=== PATIENT | female | born 1950 | race Caucasian/White ===

== ENCOUNTER → 2018-01-17 | Outpatient (CLI) | payer OTHER, MEDICARE | LOC: ULTRA 13:56 → RAD 13:56 | DX: N63.11 Unspecified lump in the right breast, upper outer quadrant (principal); N63.22 Unspecified lump in the left breast, upper inner quadrant; R92.2 Inconclusive mammogram ==

== ENCOUNTER 2018-01-29 05:24 | Outpatient (CLI) | payer OTHER, MEDICARE ==
[~2018-01-29] VITALS: Ht 170.2 cm; Wt 91.6 kg
[~2018-01-29 05:24] MED LIST: AMITRIPTYLINE H25 M2 PO; NEXIUM20 MG PO; SIMVASTATIN40 MG PO; VITAMIN D350000 UNIT PO
[2018-01-29 06:43] VITALS: BP 178/76
== END 2018-01-29 10:39 | disposition home or self-care (01) ==
LOC: MRI 05:24 → TBA 05:24 → MRI 09:21
DX: C50.212 Malignant neoplasm of upper-inner quadrant of left female breast (principal)
CPT/HCPCS: 50010; 62110; 62900; 70005

== ENCOUNTER 2018-01-30 05:23 | Day surgery (SDC) | payer OTHER, MEDICARE ==
[~2018-01-30] VITALS: Ht 170.2 cm; Wt 91.6 kg
--- NOTE | ~2018-01-30 | H ---
[facility] [place] [address] HISTORY AND PHYSICAL Name: GISEL PALACIOS Room #: 150-1 [facility] M.R.#: [id number] Admission: 01/30/18 Attend Phys: Med Roberts MD Discharge: Date of : 48 Report #: [id number] THIS REPORT FOR: //name// CC: Facundo Roberts DATE OF SERVICE: 01/30/2018 PREOPERATIVE DIAGNOSIS: Right breast cancer, multifocal with highly suspicious axillary node x 2. HISTORY OF PRESENT ILLNESS: The patient is a 67-year-old who noticed a lump in the right breast. This was in the outside aspect of the right breast. The patient has a history of fibrocystic disease. Many years ago, she had a cyst that was aspirated. No family history of breast cancer. She does have a sister with a history of a teratoma of the ovary. She also had lung cancer. The patient denies any pain. The mass is firm. No skin changes. No redness over this. No discharge. The patient had a mammogram and ultrasound performed. The patient has a main mass at 10 o'clock B position and then lateral, there is another mass and then there were two suspicious axillary nodes. A needle biopsy was performed of the main mass and it did show invasive ductal carcinoma, moderately to poorly differentiated. Her ER is 90%, CT less than 1 and HER-2 was 3+. Ki-67 is 70. The patient has had an MRI yesterday, result is pending. The patient wants to proceed with a right modified radical mastectomy. The patient does not want to have any radiation and does not want to have any reconstruction. The patient does know that some patients may still benefit from postmastectomy radiation and would have to depend on the final path. PAST MEDICAL HISTORY: The patient has elevated cholesterol and acid reflux. MEDICATIONS: Amitriptyline 25 mg daily, simvastatin 40 mg, vitamin D, and Nexium [id number]. PAST SURGICAL HISTORY: Cholecystectomy in 2006, right ankle repair in 1994, cataract surgery 2015 and 2016. ALLERGIES: She is allergic to CODEINE and NEOSPORIN. FAMILY HISTORY: Father of pneumonia. Mother had of Alzheimer's. Sister with lung cancer and a history of ovarian cancer. The patient is retired. She does not smoke. Alcohol rare. The patient does have some high blood pressure, but not on any specific medication. REVIEW OF SYSTEMS: She has irritable bowel. Occasional dizziness. The patient [address] [address] HISTORY AND PHYSICAL Name: GISEL PALACIOS Room #: 150-[address] [place] [address] M.R.#: [id number] Admission: 01/30/18 Attend Phys: Med Roberts MD Discharge: Date of : 48 Report #: [id number] denies any chest pain, numbness, weakness. No bone pain anywhere. No weight loss. PHYSICAL EXAMINATION: GENERAL: Well-nourished female in no acute distress. HEENT: Pupils react to light. Extraocular muscles are intact. Oropharynx clear. NECK: Soft and supple, no masses. The patient does have obvious breast mass at 10 o'clock B position. There are 2 palpable lymph nodes also. No skin changes. No nipple retraction, no redness or rash. Left breast is unremarkable. No supraclavicular adenopathy, no axillary adenopathy on the left side. ABDOMEN: Soft, nondistended, nontender, no mass or organomegaly. No guarding or rigidity. EXTREMITIES: No cyanosis, clubbing or edema. He moves all extremities well. Sensation is intact. IMPRESSION: The patient is a 67-year-old with left breast mass that is positive for invasive ductal carcinoma, moderate to poorly differentiated. The patient does have aggressive tumor profile with 3+ HER-2 and Ki-67 of 70%. The patient wishes to have a mastectomy. MRI will be reviewed preop. The patient understands the procedure and the risk of bleeding, infection and also was told that she probably will need to have chemotherapy. By: [id number] Med Roberts MD /nt
--- NOTE | ~2018-01-30 | O ---
[facility] [place] [address] OPERATIVE REPORT Name: GISEL PALACIOS Room #: 418-P [facility] M..#: [id number] Admission: 01/30/18 Attend Phys: Med Roberts MD Discharge: Date of : 48 Report #: [id number] THIS REPORT FOR: //name// CC: Facundo Roberts PREOPERATIVE DIAGNOSIS: Right breast invasive ductal carcinoma with multi focality and suspicious lymph nodes in the axilla. POSTOPERATIVE DIAGNOSES: Right breast invasive ductal carcinoma with multi focality and suspicious lymph nodes in the axilla. PROCEDURE: Right modified radical mastectomy. SURGEON: Med Roberts M.D. ANESTHESIA: General anesthesia. COMPLICATIONS: None. ESTIMATED BLOOD LOSS: 25 mL. DESCRIPTION OF PROCEDURE: The mass is identified at 9:30 to 10:00 position. This is a palpable mass, it is about 3 cm. There is also nodularity in the axilla. The ellipse was drawn. The skin was removed over the mass. The upper skin flap was created. This flap was performed at the superficial fascia of the breast. The flap was somewhere close to about a centimeter or slightly thinner than that. This was taken to the chest wall just a little bit below the clavicle. This was taken medially to the breast edge. Inferior skin incision was made. Cautery was used to dissect the inferior skin flap. A generous portion of the skin was removed so the main tumor can be encompassed rather easily. The breast was then taken off the chest wall. The posterior dissection was carried at the pectoralis fascia. Hemoclips were applied. There was no invasion of the chest wall grossly. The axillary space was then entered. The lateral pectoralis major muscle was then isolated and freed. The blood supply to the pectoralis minor was preserved. The axillary vein was found. The first branch was isolated, divided between clips, two were placed on the proximal side. This vein was divided. The main thoracodorsal artery and vein were then identified laterally and preserved. The nerve was intact. The long thoracic nerve was also identified and preserved. The lymph node between these two nerves was removed. There was no grossly positive node in this area. Right against the axillary vein there was no obvious lymph node, but slightly lateral and slightly inferior to the vein there was a palpable lymph node present. The axillary content was swept downward and removed with the breast. A tie was placed on the axilla for the pathologist. Skin was marked with the orientation. [address] [address] OPERATIVE REPORT Name: GISEL PALACIOS Room #: 418-P [facility]..#: [id number] Admission: 01/30/18 Attend Phys: Med Roberts MD Discharge: Date of : 48 Report #: [id number] Specimen was handed to the pathologist. Biopsy report from the outside was copied and given to the pathologist. By: [id number] 2146 Med Roberts MD /mark
--- NOTE | ~2018-01-30 | EKG ---
[address] [address] ELECTROCARDIOGRAM REPORT Name: GISEL PALACIOS Room #: 150-[address] [place] [address]..#: [id number] Admission: 01/30/18 Attend Phys: Med Roberts MD Discharge: Date of : 48 Report #: [id number] THIS REPORT FOR: //name// [facility] Test Date: 2018-01-30 Test Time: 12:27:31 Pat Name: GISEL PALACIOS Department: Room: 150 Gender: F Sales Operations Director: ROLANDO : 1950 Requested By: Med Roberts Order Number: [id number] MD: Measurements Intervals [place] Rate: 95 P: 56 LA: 170 QRS: 4 QRSD: 101 T: 46 QT: 367 QTc: 462 Interpretive Statements Sinus tachycardia Multiform ventricular premature complexes Probable anteroseptal infarct, old No previous ECG available for comparison [email or web address] By: 1227 1227 Epiphany EpiphanyMD /EPI
--- NOTE | ~2018-01-30 | PATH ---
[facility] [place] [place] [address] [place] [address] PATHOLOGY RPT PROCEDURE Name: GISEL PALACIOS Room #: DEP [facility]..#: [id number] Admission: 01/30/18 Date of : 48 Discharge: 01/31/18 Report #: [id number] Path Case #: [id number] [facility] Accession Number: [id number] . 01 Material submitted: . RIGHT MODFIED RADICAL MASTECTOMY . 01 Clinical history: . Right breast cancer . 02 Diagnosis: Breast "right modified radical mastectomy": - MULTIPLE INFILTRATING DUCTAL CARCINOMA GRADE 3, THE LARGEST MAIN MASS MEASURING 2.6 CM IN GREATEST DIMENSION. - THE SECOND MASS MEASURES 1.8 CM IN GREATEST DIMENSION AND THE THIRD MASS MEASURES 1.5 CM IN GREATEST DIMENSION. THEY ARE ALL COMPLETELY EXCISED. SEE COMMENT. - LYMPH NODES (20): THREE LYMPH NODES POSITIVE FOR METASTATIC DUCTAL CARCINOMA. - THE LARGEST FOCUS OF INVASIVE CARCINOMA MEASURES 1.0 CM. - THERE IS EXTRACAPSULAR EXTENSION MEASURING 3.0 MM IN GREATEST DIMENSION. . SYNOPTIC FOR INVASIVE CARCINOMA OF THE BREAST . Procedure ___ Total mastectomy (including nipple-sparing and skin-sparing mastectomy) . Specimen Laterality ___ Right . + Tumor Site: Invasive Carcinoma + ___ Lower outer quadrant + ___ Upper outer quadrant . Tumor Size ___ Greatest dimension of largest invasive focus >1 mm: 26 mm . Histologic Type ___ Invasive ductal carcinoma . Histologic Grade (Raine Histologic Score) . Glandular/Tubular Differentiation ___ Score 3 (<10% of tumor area forming glandular/tubular structures) . Nuclear Pleomorphism ___ Score 3 (vesicular nuclei, often with prominent nucleoli, exhibiting [facility] [address] [place] [address] PATHOLOGY RPT PROCEDURE Name: GISEL PALACIOS Room #: DEP [facility].#: [id number] Admission: 01/30/18 Date of : 48 Discharge: 01/31/18 Report #: [id number] Path Case #: [id number] marked variation in size and shape, occasionally with very large and bizarre forms) . Mitotic Rate ___ Score 2 (4-7 mitoses per mm2) . Overall Grade ___ Grade 3 (scores of 8 or 9) + Tumor Focality + ___ Multiple foci of invasive carcinoma + Number of foci: 3 + Sizes of individual foci: 2.6, 1.8 and 1.5 . Ductal Carcinoma In Situ (DCIS) ___ Not identified + Lobular Carcinoma In Situ (LCIS) + ___ No LCIS in specimen . Tumor Extension Skin ___ No involvement of skin Nipple ___ No involvement of the nipple Skeletal Muscle ___ Not involved . Margins . Invasive Carcinoma Margins ___ Uninvolved by invasive carcinoma Distance from closest margin: 10 mm Specify closest margin: Posterior . Regional Lymph Nodes ___ Involved by tumor cells . Number of Lymph Nodes with Macrometastases (>2 mm): 3 + Size of Largest Metastatic Deposit: 10 mm + Extranodal Extension: + ___ Present Number of Lymph Nodes Examined: 20 Number of [place] Nodes Examined: 0 . Treatment Effect: ___ No known presurgical therapy + Lymphovascular Invasion + ___ Present + Dermal Lymphovascular Invasion [facility] [address] [place] [address] PATHOLOGY RPT PROCEDURE Name: PHILIPGISEL ELLEN Room #: DEP [facility].#: [id number] Admission: 01/30/18 Date of : 48 Discharge: 01/31/18 Report #: [id number] Path Case #: [id number] + ___ Not identified . Pathologic Stage Classification (pTNM, AJCC 8th Edition) . Primary Tumor (Invasive Carcinoma) (pT) ___ pT2: Tumor >20 mm but less than or equal to 50 mm in greatest dimension Category (pN) ___ pN1a: Metastases in 1 to 3 axillary lymph nodes, at least 1 metastasis larger than 2.0 mm + Microcalcifications + ___ Not identified . Comment The previous biopsy was read by [facility], their case #[id number]. The invasive breast marker profile was done by [facility]. They indicated the Ki-67 to be 70 and estrogen receptors 90% intensity of stain was strong and progesterone receptor studies was less than 1% and it was negative and Her2 by FISH was 3+. This case was also discussed with Dr. Med Roberts on 02/02/2018 at 3pm. LBQ/02/02/2018 . 02 Comment: All three masses reveal a poorly differentiated infiltrating ductal carcinoma, the closest margin is posterior 1.0 cm from the third mass. (SHA/db; 02/02/2018) . 02 Electronically signed: . Nils Powers MD, Pathologist NPI- [id number] . 01 Gross description: . The specimen is received in formalin, labeled "Gisel Palacios, right modified radical mastectomy" and consists of a 1092 g modified radical mastectomy specimen with a suture at "high axilla". Present on the anterior skin ellipse is blue markings which orients superior, medial, inferior, and lateral. The breast tissue measures 19.0 cm L-M, 17.1 cm S-I, and 6.4 cm in A-P. The unremarkable anterior skin ellipse measures 20.8 x 7.9 cm and displays an everted nipple (1.4 x 1.2 cm) and areolar (6.1 x 4.8 cm). Superior is inked blue, inferior green, and posterior black. The axillary contents measures 15.0 x 7.9 x 3.0 cm. The specimen is sectioned from lateral to medial and placed back in formalin for overnight fixation. (SDY; 01/30/2018) . After additional overnight fixation 3 distinct masses are identified. The first is present in the lower outer quadrant and measures 2.6 x 2.6 x [address] [address] PATHOLOGY RPT PROCEDURE Name: GISEL PALACIOS Room #: DEP [facility]#: [id number] Admission: 01/30/18 Date of : 48 Discharge: 01/31/18 Report #: [id number] Path Case #: [id number] cm. The distance from margins are as follows: 2.0 cm inferior, 3.7 cm superior, 4.3 cm posterior, and 2.9 cm from nipple. 0.1-0.2 cm lateral from the first described mass, is the second mass (1.8 x 1.5 x 1.1 cm). The second mass extends from margins as follows: 2.0 cm inferior, 3.0 cm superior, 3.2 cm posterior, and 4.5 cm from nipple. 5.5 cm superior from the first described mass and 5.5 cm superior/medial from the second described mass is the third mass (upper outer quadrant). The third mass measures 1.5 x 1.1 x 1.0 cm and extends from the margins as follows: 1.0 cm posterior, 1.8 cm superior, 9.5 cm inferior, and 9.0 cm from nipple. The remainder of the breast parenchyma consists of yellow adipose tissue and approximately 30% dense fibrous tissue. No additional masses or lesions identified. The axillary contents reveal multiple lymph node candidates measuring between 0.3 x 0.3 cm and 4.0 x 1.5 cm. Three of the candidates are suspicious for metastasis. The specimen was collected at 2:42 PM on 01/30/18 and placed in formalin at 2:50 PM. The cold ischemic time is 8 minutes and the total formalin fixation time is greater than 6 hours but less than 72 hours. Abstract Manager sections are submitted as follows: . A1: Nipple A2-A4: First described mass A5: Margins first described mass A6-A7: Second described mass A8: Margins second described mass A9: Third described mass with relationship to posterior margin A10: Third described mass with relationship to superior margin A11: Tissue deep to nipple A12: Additional upper outer quadrant A13: Additional lower outer quadrant A14: Upper inner quadrant A15: Lower inner quadrant A16: Largest lymph node candidate, suspicious for metastasis, ocean import representative A17-A19: One lymph node candidate, serially sectioned A20-A21: One lymph node candidate, serially section (suspicion for metastasis) A22-A28: Fat replaced lymph node candidate with focus of metastasis A29: One lymph node candidate, trisected A30: One lymph node candidate, bisected A31: 2 sectioned lymph node candidates, one inked black A32: Multiple intact lymph node candidates A33: 2 bisected lymph node candidates, one inked black A34: 2 bisected lymph node candidates, one inked black A35: Intact lymph node candidates (SDY; 01/31/2018) SYU/SYU . 02 Pathologist provided ICD-10: [address] [address] PATHOLOGY RPT PROCEDURE Name: GISEL PALACIOS Room #: DEP [facility] MShahrzad.#: [id number] Admission: 01/30/18 Date of : 48 Discharge: 01/31/18 Report #: [id number] Path Case #: [id number] C50.411, C50.511, C77.3 . 02 [facility] . [id number] Specimen Comment: A courtesy copy of this report has been sent to Specimen Comment: [phone], . Specimen Comment: Report sent to / DR RICHARD Performed at: [address], [place], [place] [id number] MD Wolf Francois MD Phone: [phone] Performed at: [address] [id number] MD Jazlyn Villarreal MD Phone: [phone]
[2018-01-30 12:02] LABS: HEMATOCRIT 44.9 % (37.0-47.0); HEMOGLOBIN 15.5 gm/dL (12.0-15.0)
[2018-01-30 12:06] VITALS: BP 175/91
[2018-01-30 18:31] VITALS: BP 157/92
[2018-01-30 19:30] VITALS: BP 160/95
[2018-01-30 20:00] VITALS: BP 150/86
[2018-01-30 21:00] VITALS: BP 128/68
[2018-01-30 22:00] VITALS: BP 170/97
[2018-01-31 02:00] VITALS: BP 114/62
[2018-01-31 03:00] VITALS: BP 115/59
[2018-01-31 06:00] VITALS: BP 115/62
[2018-01-31 08:07] VITALS: BP 127/71
[2018-01-31 15:52] VITALS: BP 136/61
[2018-01-31] MEDS ORDERED: ALEVE220 MG PO (16:16)
[2018-01-31 16:27] VITALS: BP 136/61
== END 2018-01-31 17:57 | disposition home or self-care (01) ==
LOC: TBA 05:23 → OR 05:23 → TBA 05:24 → OR 08:05 → 4E 18:23 → ENTRNSPT 01-31 17:20 → OR 01-31 17:57
PROVIDERS: Surgery
DX: C50.411 Malignant neoplasm of upper-outer quadrant of right female breast (principal); C50.511 Malignant neoplasm of lower-outer quadrant of right female breast; C77.3 Secondary and unspecified malignant neoplasm of axilla and upper limb lymph nodes; I10 Essential (primary) hypertension; E78.00 Pure hypercholesterolemia, unspecified; K21.9 Gastro-esophageal reflux disease without esophagitis; G43.909 Migraine, unspecified, not intractable, without status migrainosus; Z98.42 Cataract extraction status, left eye; Z79.899 Other long term (current) drug therapy; Z90.49 Acquired absence of other specified parts of digestive tract; Z98.890 Other specified postprocedural states; Z88.8 Allergy status to other drugs, medicaments and biological substances; Z80.1 Family history of malignant neoplasm of trachea, bronchus and lung; Z98.41 Cataract extraction status, right eye
CPT/HCPCS: 10783; 50010; 50101; 50331; 50386; 50417; 51301; 54118; 56524; 56525; 56526; 62110; 62900; 70005

== ENCOUNTER 2018-02-19 06:23 | Day surgery (SDC) | payer OTHER, MEDICARE ==
[~2018-02-19] VITALS: Ht 170.2 cm; Wt 92.1 kg
--- NOTE | ~2018-02-19 | O ---
[facility] [place] [address] OPERATIVE REPORT Name: GISEL PALACIOS Room #: DEP [facility]..#: [id number] Admission: 02/19/18 Attend Phys: Med Roberts MD Discharge: 02/19/18 Date of : 48 Report #: [id number] THIS REPORT FOR: //name// CC: Tray Roberts DATE OF SERVICE: 02/19/2018 PREOPERATIVE DIAGNOSIS: Right breast cancer, recently diagnosed, needs Port-A-Cath for IV chemotherapy. POSTOPERATIVE DIAGNOSIS: Right breast cancer, recently diagnosed, needs Port-A-Cath for IV chemotherapy. PROCEDURE PERFORMED: Placement of Port-A-Cath via left subclavian approach. ANESTHESIA: IV sedation, local 0.25% Marcaine. SURGEON: Med Roberts MD COMPLICATIONS: None. ESTIMATED BLOOD LOSS: 5 mL PROCEDURE NOTE: With the patient under IV sedation, the left chest was prepped and draped in sterile fashion. 0.25% Marcaine was used to anesthetize skin and subcutaneous tissue. Timeout was performed. Approximately 3 cm incision was made underneath the left clavicle. Excision was carried down to the fascia. The space just above the pectoralis fascia was dissected free inferiorly. This created a pocket. The port fit easily into the pocket. The patient was then placed in the Trendelenburg position. The subclavian vein was found on the second pass without difficulty. Wire was guided in through the needle without resistance. The wire was identified on fluoroscopy to be in a good position. The catheter was then measured from the superior vena cava to the port site and measured about 21 cm. The catheter was trimmed at this level. The catheter was then fitted to the port and locked with a supplied locking device. The port and the catheter were then flushed with heparinized saline. The dilution of the heparinized saline is 100 units per mL. A dilator was then placed over the wire. The Peel-Apart sheath was then placed over the dilator. Both of these were threaded over the wire. The dilator and the wire were removed. Port was inserted into the Peel-Apart sheath. The sheath was peeled apart leaving the catheter in the vein. The port was placed inside the pocket. Fluoroscopy showed good placement of the tip right in the lower part of the SVC. There was no kinking of the catheter. The port was then sewn to the pectoralis fascia x 2 with 2-0 Prolene. The subcutaneous tissue and the pocket area was then flushed with bacitracin antibiotic. Subcutaneous tissue was closed with 3-0 PDS. Skin [address] [address] OPERATIVE REPORT Name: GISEL PALACIOS Room #: DEP [facility]..#: [id number] Admission: 02/19/18 Attend Phys: Med Roberts MD Discharge: 02/19/18 Date of : 48 Report #: [id number] was closed with 5-0 PDS running subcuticular fashion. Steri-Strips, 4 x 4's was applied. The port was accessed without difficulty and easy return of blood. This was then flushed with heparinized saline. The Telfa dressing and OpSite was used for dressing. The patient tolerated the procedure well. By: [id number] 2313 Med Roberts MD /nt
[~2018-02-19 06:23] MED LIST changes: +ALEVE220 MG PO
[2018-02-19 09:10] VITALS: BP 165/81
[2018-02-19 11:48] VITALS: BP 165/81
== END 2018-02-19 12:25 | disposition home or self-care (01) ==
LOC: OR 06:23 → TBA 06:24 → OR 07:45
DX: Z45.2 Encounter for adjustment and management of vascular access device (principal); C50.911 Malignant neoplasm of unspecified site of right female breast; I10 Essential (primary) hypertension; E78.00 Pure hypercholesterolemia, unspecified; K21.9 Gastro-esophageal reflux disease without esophagitis; Z90.49 Acquired absence of other specified parts of digestive tract; Z98.41 Cataract extraction status, right eye; Z98.42 Cataract extraction status, left eye; Z98.890 Other specified postprocedural states; Z88.8 Allergy status to other drugs, medicaments and biological substances; Z79.899 Other long term (current) drug therapy
CPT/HCPCS: 50010; 50101; 50386; 50403; 51938; 56524; 56525; 62110; 62850; 70005